=== PATIENT | male | born 1945 | race Caucasian/White ===

== ENCOUNTER 2021-02-21 20:12 | Emergency (ER) | payer MEDICARE ==
[2021-02-21] MEDS ORDERED: Sodium Chloride 0.9% 10 ML Syringe FLUSH PRN (20:27)
[2021-02-21] MEDS ORDERED: Labetalol 100 MG/20 ML MDV IVPUSH ONE (20:44)
--- NOTE | 2021-02-21 20:44 | EDM.PDOC ---
ED HPI GENERAL MEDICAL PROBLEM - General Chief Complaint: Chest Pain Stated Complaint: Cardiac event Time Seen by Provider: 02/21/21 20:15 Source of Information: Reports: EMS History Limitations: Reports: No Limitations - History of Present Illness INITIAL COMMENTS - FREE TEXT/NARRATIVE: patient was brought to the ER by EMS after a witnessed fall. Per reports, he was going up the stairs - when he landed backward and hit the back of his head - it was a one step edge. transient LOC, by the time the EMS arrival - he was alert and oriented but still on the ground. 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 EKG on scene showed NSR with RBBB. BS 105, BP 152/82, HR 82 Onset: Sudden Duration: Minutes: (45) Location: Reports: Head - Related Data Allergies Allergy/AdvReac Type Severity Reaction Status Date / Time No Known Allergies Allergy Verified 02/21/21 21:22 ED ROS GENERAL - Review of Systems Review Of Systems: See Below Constitutional: Reports: No Symptoms HEENT: Reports: No Symptoms Respiratory: Reports: No Symptoms Cardiovascular: Reports: No Symptoms GI/Abdominal: Reports: No Symptoms : Reports: No Symptoms Musculoskeletal: Reports: No Symptoms Skin: Reports: No Symptoms Neurological: Reports: No Symptoms ED EXAM, GENERAL - Physical Exam Exam: See Below Exam Limited By: No Limitations General Appearance: Alert, WD/WN, No Apparent Distress Eye Exam: Bilateral Eye: EOMI, PERRL Head: Atraumatic Neck: Normal Inspection, Non-Tender, Full Range of Motion Respiratory/Chest: No Respiratory Distress, Lungs Clear, Normal Breath Sounds, Chest Non-Tender Cardiovascular: Normal Peripheral Pulses, Regular Rate, Rhythm GI/Abdominal: Normal Bowel Sounds, Soft, Non-Tender Extremities: Normal Inspection, Other (there is an old bruise to the right shoulder with limited ROM) Neurological: Alert, Oriented, Normal Cognition, No Motor/Sensory Deficits. No: Unresponsive Psychiatric: Normal Affect, Normal Mood #1 Interpretation EKG Date: 02/21/21 Time: 20:23 Rhythm: NSR Hungry Horse: Normal P-Wave: Present QRS: RBBB ST-T: Normal QT: Normal Comparison: NA - No Prior EKG Course - Orders/Labs/Meds Orders: Active Orders 24 hr Category Date Time Status EKG Documentation Completion [RC] ASDIRECTED Care 02/21/21 20:28 Active CXR [Chest 1V Frontal] [CR] Stat Exams 02/21/21 20:27 Ordered Head wo Cont [CT] Stat Exams 02/21/21 20:27 Taken Sodium Chloride 0.9% [Saline Flush] Med 02/21/21 20:27 Active 10 ml FLUSH ASDIRECTED PRN Saline Lock Insert [OM.PC] Routine Oth 02/21/21 20:27 Ordered Medication Orders Sodium Chloride (Sodium Chloride 0.9% 10 Ml Syringe) 10 ml FLUSH ASDIRECTED PRN PRN Reason: Keep Vein Open Labs: Laboratory Tests 02/21/21 02/21/21 Range/Units 20:25 20:25 WBC 5.8 (4.0-11.0) K/uL RBC 4.46 L (4.50-6.50) M/uL Hgb 12.4 L (13.0-18.0) g/dL Hct 37.9 L (40.0-54.0) % MCV 85 (76-96) fL MCH 27.8 (27.0-32.0) pg MCHC 32.7 (31.0-35.0) g/dL RDW 15.5 (11.0-16.0) % Plt Count 199 (150-400) K/uL MPV 11.7 H (6.0-10.0) fL Sodium 137 (136-145) mmol/L Potassium 4.0 (3.5-5.1) mmol/L Chloride 100 (98-107) mmol/L Carbon Dioxide 26.6 (21.0-32.0) mmol/L Anion Gap 14.4 (5.0-15.0) mmol/L BUN 21 (8-26) mg/dL Creatinine 1.36 H (0.70-1.30) mg/dL Est Cr Clr Drug Dosing TNP Estimated GFR (MDRD) 51 L (>60) MLS/MIN BUN/Creatinine Ratio 15.4 (6-25) Glucose 104 H (74-100) mg/dL Calcium 8.9 (8.5-10.1) mg/dL Troponin I < 0.017 (0.000-0.060) ng/mL Meds: Medications Generic Name Dose Route Start Last Admin Trade Name Freq PRN Reason Stop Dose Admin Sodium Chloride 10 ml 02/21/21 20:27 Sodium Chloride 0.9% 10 Ml Syringe FLUSH ASDIRECTED PRN Keep Vein Open Discontinued Medications Generic Name Dose Route Start Last Admin Trade Name Freq PRN Reason Stop Dose Admin Labetalol HCl 10 mg 02/21/21 20:44 Labetalol 100 Mg/20 Ml Mdv IVPUSH 02/21/21 20:45 ONETIME ONE Protocol - Re-Assessments/Exams Free Text/Narrative Re-Assessment/Exam: 02/21/21 20:33 was connected to a monitor EKG was obtained IV line was established labs were ordered CT head wo contrast - showed a small intra-parenchymal Subarachnoid hmrg on the left side - without midline shift. also small nodular right SDH measuring 5mm. 02/21/21 20:45 called [facility] - for a transfer - patient was not accepted due to complexity Called [facility] - spoke with neurosurgeon Dr. Hunter - recommended andexxa for reversal - but unfortunately the medicine is not available. no other alternative. will transfer patient by helicopter to [place] - ER then ICU patient and family aware Departure - Departure Time of Disposition: 21:23 Disposition: DC/Tfer to Acute Hospital 02 Reason for Transfer *Q: Other (specilaity service - ICU) Condition: Fair Clinical Impression: Subarachnoid hemorrhage Closed head injury Qualifiers: Encounter type: initial encounter Qualified Code(s): S09.90XA - Unspecified injury of head, initial encounter Subdural hematoma, post-traumatic Qualifiers: Encounter type: initial encounter Loss of consciousness presence/duration: without LOC Qualified Code(s): S06.5X0A - Traumatic subdural hemorrhage without loss of consciousness, initial encounter Forms: ED Department Discharge - Problem List & Annotations (1) Closed head injury SNOMED Code(s): 407731208680 Code(s): S09.90XA - UNSPECIFIED INJURY OF HEAD, INITIAL ENCOUNTER Status: Acute Priority: High Qualifiers: Encounter type: initial encounter Qualified Code(s): S09.90XA - Unspecified injury of head, initial encounter (2) Subarachnoid hemorrhage SNOMED Code(s): 561051237 Code(s): I60.9 - NONTRAUMATIC SUBARACHNOID HEMORRHAGE, UNSPECIFIED Status: Acute Priority: Medium (3) Subdural hematoma, post-traumatic SNOMED Code(s): 99953353 Code(s): S06.5X9A - TRAUM SUBDR HEM W LOC OF UNSP DURATION, INIT Status: Acute Priority: High Qualifiers: Encounter type: initial encounter Loss of consciousness presence/duration: without LOC Qualified Code(s): S06.5X0A - Traumatic subdural hemorrhage without loss of consciousness, initial encounter - Problem List Review Problem List Initiated/Reviewed/Updated: Yes - My Orders Last 24 Hours: My Active Orders 02/21/21 20:27 CXR [Chest 1V Frontal] [CR] Stat Head wo Cont [CT] Stat Sodium Chloride 0.9% [Saline Flush] 10 ml FLUSH ASDIRECTED PRN Saline Lock Insert [OM.PC] Routine 02/21/21 20:28 EKG Documentation Completion [RC] ASDIRECTED - Assessment/Plan Last 24 Hours: My Active Orders 02/21/21 20:27 CXR [Chest 1V Frontal] [CR] Stat Head wo Cont [CT] Stat Sodium Chloride 0.9% [Saline Flush] 10 ml FLUSH ASDIRECTED PRN Saline Lock Insert [OM.PC] Routine 02/21/21 20:28 EKG Documentation Completion [RC] ASDIRECTED Plan: CT head labs EKG CXR blood pressure stabilization transfer to a higher level of care with neurosurgery service
[2021-02-21] MEDS ORDERED: levETIRAcetam 500 MG Tab PO STA (21:32)
--- NOTE | 2021-02-22 09:06 | CT ---
DATE OF SERVICE: 02/21/21 CLINICAL DATA: LOC - fall, head injury UNENHANCED BRAIN CT: Multislice acquisition through the brain without IV contrast was performed. No priors. There is acute blood density material within the left sylvian fissure and within a sulci in the left posterior parietal region consistent with acute subarachnoid hemorrhage. There is also a couple of small hyperdense collections adjacent to the falx in the anterior parietal region consistent with subdural hematoma, maximum diameter of 5 mm. No mass effect associated with this. There is mild atrophy. There are periventricular lucencies bilaterally consistent with small vessel ischemic change. No fractures. There is mucosal thickening in the frontal and ethmoid sinuses. There is total opacification of the maxillary sinuses. Findings consistent with sinus disease. IMPRESSION: Abnormal exam. See above. The patient's physician was notified of the findings by telephone and by [facility] preliminary radiology report. [id number] [facility]
--- NOTE | 2021-02-22 09:08 | CR ---
DATE OF SERVICE: 02/21/21 CLINICAL DATA: syncope PORTABLE CHEST: The heart size is normal. The aorta is calcified and ectatic. The lungs are clear. No pneumothorax. No pleural effusions. No areas of consolidation. No evidence of acute intrathoracic disease. [id number] MTDD
== END 2021-02-21 23:15 ==
LOC: LB.ED 20:12
DX: S06.5X0A Traumatic subdural hemorrhage without loss of consciousness, initial encounter (principal); S06.6X0A Traumatic subarachnoid hemorrhage without loss of consciousness, initial encounter; Z20.822 Contact with and (suspected) exposure to COVID-19; W22.8XXA Striking against or struck by other objects, initial encounter
CPT/HCPCS: 36415; 70450; 71045; 80048; 84484; 85027; 93005; 96374; 99285-25; A0425; A0429; A9270-GY; U0002